=== PATIENT | male | born 1930 | race Two or more races ===

== ENCOUNTER 2019-01-24 17:48 | Inpatient (IN) | payer MEDICAID, MEDICARE ==
[~2019-01-24] VITALS: Ht 167.6 cm; Wt 67.3 kg
[2019-01-24] MEDS ORDERED: LOSA50TA39 PO (18:24)
[2019-01-24] MEDS ORDERED: DICL50TA9 PO (18:24)
[2019-01-24] MEDS ORDERED: TRAM50TA2 PO (18:24)
[2019-01-24] MEDS ORDERED: PANT40TA4 PO (18:24)
--- NOTE | 2019-01-24 18:45 | NUR ---
PATIENT IN ROOM LAYING ON GURNY A/OX3. PATIENT CAME INTO ER C/O NAUSEA WITH NO VOMITING X2 DAYS WUTH GENARALIZED WEAKNESS. PATIENT SPEAKING WITH CLEAR SPEECH,EQUAL FITNESS CLUB MANAGER NOTED. ABLE TO AMBULAE WITH STEADY GAIT.
[2019-01-24 18:48] LABS: BASOPHILS % (AUTO) 0.1 % (0.0-2.0); EOSINOPHILS # (AUTO) 0.1 K/uL (0.0-0.7); EOSINOPHILS % (AUTO) 0.5 % (0.0-7.0); HEMATOCRIT 34.8 % (36.7-47.1); HEMOGLOBIN 11.6 g/dL (12.5-16.3); LYMPHOCYTES % (AUTO) 10.2 % (20.5-51.5); MEAN CORPUSCULAR HEMOGLOBIN 24.4 uug (23.8-33.4); MEAN CORPUSCULAR HGB CONC 33 g/dL (32.5-36.3); MEAN CORPUSCULAR VOLUME 73.2 fL (73.0-96.2); MONOCYTES # (AUTO) 6.4 K/uL (2.0-10.0); MONOCYTES % (AUTO) 33.4 % (0.0-11.0); NEUTROPHILS # (AUTO) 10.7 K/uL (1.8-8.9); NEUTROPHILS % (AUTO) 55.8 % (38.5-71.5); PLATELET COUNT (AUTO) 168 K/uL (152-348); RED BLOOD CELL COUNT(AUTO) 4.75 MIL/uL (4.06-5.63); WHITE BLOOD COUNT (AUTO) 19.2 K/uL (3.6-10.2)
[2019-01-24 18:50] LABS: CARBON DIOXIDE 22 mmol/L (21-32); CHLORIDE 105 mmol/L (98-107); CREATININE 2.8 mg/dL (0.6-1.3); GLUCOSE 117 mg/dL (74-106); POTASSIUM 5.1 mmol/L (3.5-5.1); UREA NITROGEN, BLOOD 52 mg/dL (7-18)
[2019-01-24 18:55] LABS: ALKALINE PHOSPHATASE 62 U/L (50-136); ASPARTATE AMINOTRANSFERASE 5 U/L (15-37); BILIRUBIN,DIRECT 0.3 mg/dL (0.0-0.2); BILIRUBIN,TOTAL 0.6 mg/dL (0.2-1.0); TOTAL PROTEIN, SERUM 7.1 g/dL (6.4-8.2)
[2019-01-24 19:04] LABS: ALANINE AMINOTRANSFERASE 10 U/L (16-63)
[2019-01-24] MEDS ORDERED: ONDANSETRON 4 MG/2 ML VIAL IV ONE (19:15)
[2019-01-24 19:21] LABS: BAND % (MANUAL) 1 % (0-10); LYMPHOCYTES % (MANUAL) 9 % (20-40); MONOCYTES % (MANUAL) 31 % (2-10); NEUTROPHILS % (MANUAL) 59 % (42-75)
[2019-01-24] MEDS ORDERED: ONDANSETRON 4 MG/2 ML VIAL ONE (19:23)
[2019-01-24 19:58] LABS: THYROID STIMULATING HORMONE 0.659 mIU/mL (0.358-3.740)
[2019-01-24] MEDS ORDERED: IV NS 1000 ML 1,000 ML IV ONE (20:00)
[2019-01-24] MEDS ORDERED: CEFTRIAXONE 1 G in IV DEXTROSE 5% 50 ML IV ONE (20:00)
[2019-01-24] MEDS ORDERED: AZITHROMYCIN IV 500 MG in IV DEXTROSE 5% 250 ML IV ONE (20:00)
[2019-01-24 20:02] LABS: *BILIRUBIN,URIN NEGATIVE (NEGATIVE); *BLOOD, URINE NEGATIVE (NEGATIVE); *CLARITY,URINE CLEAR (CLEAR); *COLOR,URINE YELLOW (YELLOW); *KETONES,URINE NEGATIVE (NEGATIVE); LEUKOCYTE ESTERASE ,URINE NEGATIVE (NEGATIVE); NITRITE, URINE NEGATIVE (NEGATIVE); PH,URINE 5.5 (5.0-8.0); UGLUCOSE NEGATIVE (NEGATIVE)
[2019-01-24] MEDS ORDERED: CEFTRIAXONE 1 G VIAL ONE (20:07)
[2019-01-24] MEDS ORDERED: AZITHROMYCIN 500 MG VIAL IV ONE (20:07)
[2019-01-24 20:21] LABS: MUCUS,URINE FEW /LPF (0-FEW); WBC,URINE 0-3 /HPF (0-3)
--- NOTE | 2019-01-24 20:52 | NUR ---
PAGED EPPIC PANEL. WAITING FOR PRIYANKA BANKS BOWLING ALLEY ATTENDANT TO CALL BACK.
--- NOTE | 2019-01-24 21:00 | NUR ---
[employer] CATHETERIZATION TECHNOLOGIST PRACTICE SPECIALIST FOR EPPIC HERE TO EVAL PATIENT
[2019-01-24] MEDS ORDERED: IV NS 1000 ML 1,000 ML IV PRN (21:34)
[2019-01-24] MEDS ORDERED: HYDROCODONE/APAP 5-325MG TABLET PO PRN (21:45)
[2019-01-24] MEDS ORDERED: ACETAMINOPHEN 325 MG TABLET PO PRN (21:45)
[2019-01-24] MEDS ORDERED: MAGNESIUM HYDROXIDE 30 ML LIQUID UDC PO PRN (21:45)
[2019-01-24] MEDS ORDERED: Z GUARD REMEDY PASTE 57 GM TUBE TOP PRN (21:45)
[2019-01-24] MEDS ORDERED: MORPHINE SULFATE 2 MG/1 ML DISP.SYRIN IV PRN (21:45)
[2019-01-24] MEDS ORDERED: ONDANSETRON 4 MG/2 ML VIAL IV PRN (21:45)
[2019-01-24] MEDS ORDERED: TEMAZEPAM 15 MG CAPSULE PO PRN (21:45)
--- NOTE | 2019-01-24 22:00 | NUR ---
Received patient 88y/o M from ER via gurney accompanied by 2 sons. Admitting dx: community acquired PNA and ARF. Patient is A&Ox2, Farsi speaking. IV on L AC gauge #20, intact and patent. On residential monitor, SR. Admission protocol initiated. Bed kept in low and locked position w/ side rails up x 2. Bed alarm on for safety. Call light within reach
[2019-01-24 22:24] VITALS: BP 148/42
[2019-01-25 00:45] VITALS: BP 158/55
[2019-01-25] MEDS ORDERED: LORAZEPAM 2 MG/1 ML VIAL IV PRN (03:00)
--- NOTE | 2019-01-25 03:15 | NUR ---
Patient noted w/ episode of agitation and wanted to go home. N.o from Dr. Killian for Ativan 1mg IV Q8 PRN, noted and carried out.
[2019-01-25 06:07] LABS: BASOPHILS % (AUTO) 0.2 % (0.0-2.0); EOSINOPHILS # (AUTO) 0.1 K/uL (0.0-0.7); EOSINOPHILS % (AUTO) 0.5 % (0.0-7.0); HEMATOCRIT 30.7 % (36.7-47.1); HEMOGLOBIN 10.4 g/dL (12.5-16.3); LYMPHOCYTES # (AUTO) 1.4 K/uL (20.0-40.0); LYMPHOCYTES % (AUTO) 10.7 % (20.5-51.5); MEAN CORPUSCULAR HGB CONC 34 g/dL (32.5-36.3); MEAN CORPUSCULAR VOLUME 73.5 fL (73.0-96.2); MONOCYTES # (AUTO) 4.6 K/uL (2.0-10.0); MONOCYTES % (AUTO) 34.7 % (0.0-11.0); NEUTROPHILS # (AUTO) 7.2 K/uL (1.8-8.9); NEUTROPHILS % (AUTO) 53.9 % (38.5-71.5); PLATELET COUNT (AUTO) 154 K/uL (152-348); RED BLOOD CELL COUNT(AUTO) 4.17 MIL/uL (4.06-5.63); WHITE BLOOD COUNT (AUTO) 13.4 K/uL (3.6-10.2)
--- NOTE | 2019-01-25 06:21 | NUR ---
Patient slept intermittently. No complaints of pain at this time. All needs attended. Will endorse accordingly
[2019-01-25 06:25] LABS: THYROID STIMULATING HORMONE 0.632 mIU/mL (0.358-3.740)
[2019-01-25 06:29] VITALS: BP 176/68
[2019-01-25 06:41] LABS: ALANINE AMINOTRANSFERASE 13 U/L (16-63); ALKALINE PHOSPHATASE 56 U/L (50-136); ASPARTATE AMINOTRANSFERASE < 5 U/L (15-37); BILIRUBIN,TOTAL 0.5 mg/dL (0.2-1.0); CARBON DIOXIDE 25 mmol/L (21-32); CHLORIDE 107 mmol/L (98-107); CHOLESTEROL 88 mg/dL (<200); CREATININE 2.1 mg/dL (0.6-1.3); GLUCOSE 108 mg/dL (74-106); HDL CHOLESTEROL 23 mg/dL (40-60); MAGNESIUM 1.9 mg/dL (1.8-2.4); POTASSIUM 5.1 mmol/L (3.5-5.1); TOTAL PROTEIN, SERUM 6.1 g/dL (6.4-8.2); TRIGLYCERIDES 76 MG/DL (30-150); UREA NITROGEN, BLOOD 45 mg/dL (7-18)
--- NOTE | 2019-01-25 07:45 | NUR ---
Received patient asleep in bed, easily arousable. AAOx3, Mainly Farsi speaking. Family at the bedside. IV on left AC intact and patent with IVF running at 75cc/hr. In no acute distress. Safety measures implemented. Comfort provided, call light within reach. Will continue to monitor.
[2019-01-25 07:54] LABS: EOSINOPHILS % (MANUAL) 2 % (0-8); LYMPHOCYTES % (MANUAL) 11 % (20-40); MONOCYTES % (MANUAL) 18 % (2-10); NEUTROPHILS % (MANUAL) 69 % (42-75)
[2019-01-25] MEDS ORDERED: LOSARTAN POTASSIUM 50 MG TABLET PO SCH (09:00)
[2019-01-25] MEDS ORDERED: HEPARIN SODIUM,PORCINE 5,000 UNITS/ML VIAL SQ SCH (09:00)
[2019-01-25] MEDS ORDERED: PANTOPRAZOLE SODIUM 40 MG TABLET.DR PO SCH (09:00)
[2019-01-25 11:01] VITALS: BP 132/51
--- NOTE | 2019-01-25 11:40 | NUR ---
Discharge orders in place. Patient to follow up with PCP and collections clerk due to kidney failure. Exit care provided and education given. Vital sign stable. Patient denies pain at this time. No SOB. Denies pain. Patient discharge to home with family and home health via private car with son.
[2019-01-25] MEDS ORDERED: AZITHROMYCIN IV 500 MG in IV DEXTROSE 5% 250 ML IV SCH (20:00)
[2019-01-25] MEDS ORDERED: CEFTRIAXONE 1 G in IV DEXTROSE 5% 50 ML IV SCH (20:00)
== END 2019-01-25 11:40 | disposition home or self-care (01) | DRG 469 ==
LOC: ER 17:53 → TELE3 21:38
PROVIDERS: ADMIT Nurse Practitioner Acute Care; ATTEND Nurse Practitioner Acute Care
DX: N17.0 Acute kidney failure with tubular necrosis (principal); D68.59 Other primary thrombophilia; D63.8 Anemia in other chronic diseases classified elsewhere; Z74.09 Other reduced mobility; F03.90 Unspecified dementia, unspecified severity, without behavioral disturbance, psychotic disturbance, mood disturbance, and anxiety; K21.9 Gastro-esophageal reflux disease without esophagitis; I11.9 Hypertensive heart disease without heart failure; Z87.891 Personal history of nicotine dependence; W19.XXXA Unspecified fall, initial encounter; R73.9 Hyperglycemia, unspecified; R79.89 Other specified abnormal findings of blood chemistry; M19.90 Unspecified osteoarthritis, unspecified site; D72.829 Elevated white blood cell count, unspecified; G31.9 Degenerative disease of nervous system, unspecified; I67.2 Cerebral atherosclerosis; R11.2 Nausea with vomiting, unspecified
CPT/HCPCS: 36415; 70030-TC; 70450; 71045; 83605; 83735; 84100; 84443; 85025; 85730; 87040; 87086; 93005; A4663; G0378; J0456; J0696; J1644; J2060; J2270; J2405; J7030; J7060